=== PATIENT | male | born 1990 | race Caucasian/White ===

== ENCOUNTER 2024-04-10 12:54 | Emergency (ER) | payer OTHER ==
[~2024-04-10] VITALS: Ht 182.9 cm; Wt 93.8 kg
[2024-04-10 13:59] VITALS: BP 145/78
== END 2024-04-10 14:03 | disposition home or self-care (01) ==
LOC: ED 12:54
DX: U07.1 COVID-19 (principal)
CPT/HCPCS: 99283

== ENCOUNTER 2024-09-01 10:37 | Emergency (ER) | payer OTHER ==
[~2024-09-01] VITALS: Ht 182.9 cm; Wt 86.6 kg
[2024-09-01 11:36] LABS: BASOPHILS 0.6 % (0-2); EOSINOPHILS 2.5 % (0-6); HEMATOCRIT 47.4 % (35.0-50.0); HEMOGLOBIN 16.5 g/dL (12.0-18.0); LYMPHOCYTES 26.4 % (24-44); MCH 29.6 (27-36); MCHC 34.8 g/dl (30-36); MCV 85.1 fl (81-99); MONOCYTES 10.6 % (0-12); NEUTROPHILS 59.9 % (39-80); PLATELET COUNT 222 K/uL (140-440); RBC 5.57 M/ul (4.3-5.7)
[2024-09-01] MEDS ORDERED: KETOROLAC TROMETHAMINE 30 MG/ML VIAL IV ONE (11:45)
[2024-09-01] MEDS ORDERED: ondansetron HCL 4 MG/2 ML VIAL IV ONE (11:45)
[2024-09-01] MEDS ORDERED: SODIUM CHLORIDE 0.9% 1,000 ML IV PRN (11:45)
[2024-09-01 11:48] LABS: ALBUMIN 3.8 g/dL (3.4-5.0); ALBUMIN/GLOBULIN RATIO 1.09 (1.1-2.4); ANION GAP 11.2 (7-21); BILIRUBIN, TOTAL 0.3 ng/dL (0.2-1.0); BUN/CREATININE RATIO 14.54 (6.0-28.6); CALCIUM 9.1 mg/dL (8.5-10.1); CREATININE, SERUM 1.1 mg/dL (0.70-1.30); POTASSIUM 4.2 mmol/L (3.5-5.1); PROTEIN, TOTAL 7.3 g/dL (6.4-8.2)
[2024-09-01 12:07] LABS: BILIRUBIN, URINE NEGATIVE (negative); BLOOD/HGB, URINE NEGATIVE (Negative); KETONE, URINE NEGATIVE (Negative); LEUK ESTERASE, URINE NEGATIVE (negative); NITRITE, URINE NEGATIVE (negative); PH, URINE 5.5 (5-7)
[2024-09-01 12:12] LABS: EPITHELIAL CELLS, URINE SQUAMOUS 1+ /lpf (0-1+)
[2024-09-01 12:13] LABS: BACTERIA, URINE NONE SEEN /hpf (negative); CASTS, URINE NONE SEEN \\lpf; COLLECTION TYPE, URINE CLEAN CATCH; CRYSTALS, URINE NONE SEEN (0-1+); RED BLOOD CELLS, URINE 0-1 /hpf (0-5); REFLEX CULTURE, URINE No (No); WHITE BLOOD CELLS, URINE 0-1 /HPF (0-5)
[2024-09-01] MEDS ORDERED: KETOROLAC TROME10 MG PO (13:49)
[2024-09-01 14:07] VITALS: BP 103/64
== END 2024-09-01 14:08 | disposition home or self-care (01) ==
LOC: ED 10:37
PROVIDERS: Emergency Medicine
DX: R10.11 Right upper quadrant pain (principal); R10.31 Right lower quadrant pain
CPT/HCPCS: 36415; 74176; 80053; 81001; 83690; 85025; 96374; 96375; 99284-25; J1885; J2405; J7030